=== PATIENT | female | born 1935 | race Caucasian/White ===

== ENCOUNTER 2021-10-17 08:13 | Inpatient (IN) ==
[2021-10-17] MEDS ORDERED: Morphine 4 MG/ML VIAL (1 ml) IV ONE ×2 (08:43→10:04)
[2021-10-17 09:56] LABS: ABS Basophils 0.1 10^3/ul (0-0.2); ABS Monocytes 0.9 10^3/ul (0-0.8); ABS Neutrophils 16.2 10^3/ul (1.5-7.7); Eosinophil % 0.1 %; Hematocrit 42 % (35-47); Hemoglobin 14.3 g/dL (12.0-16.0); Lymphocyte % 5.4 %; Mean Corpuscular HGB Conc 34 g/dL (31-36); Mean Corpuscular Hemoglobin 29 pg (27-31); Mean Corpuscular Volume 85 fL (80-97); Mean Platelet Volume 8.3 fL (7.4-10.4); Nucleated Red Blood Cells % 0.1; Platelet Count 206 10^3/uL (150-450); Red Blood Count 4.95 10^6 /uL (3.70-4.87); Red Cell Distribution Width 13 % (10-15); White Blood Count 18.1 10^3/uL (3.5-10.8)
[2021-10-17 10:15] LABS: ALT 16 U/L (7-52); Albumin 3.5 g/dL (3.2-5.2); Albumin/Globulin Ratio 1.3 (1-3); Alkaline Phosphatase 52 U/L (35-149); Blood Urea Nitrogen 15 mg/dL (6-24); CO2 Carbon Dioxide 21 mmol/L (22-32); Calcium 8.6 mg/dL (8.6-10.3); Chloride 108 mmol/L (101-111); Globulin 2.6 g/dL (2-4); Glucose 114 mg/dL (70-100); Sodium 138 mmol/L (135-145); Total Protein 6.1 g/dL (6.4-8.9); eGFR CKD-EPI 71.9 (>60)
[2021-10-17 10:17] LABS: Troponin I 0.01 ng/mL (<0.03)
[2021-10-17 10:21] LABS: INR 1.1 (0.86-1.15)
[2021-10-17] MEDS ORDERED: Ondansetron 4 mg VIAL 2 MG/ML 2 ml VIAL IV PRN (11:45)
[2021-10-17 12:03] LABS: Anion Gap 9 mmol/L (2-11)
[2021-10-17 12:15] LABS: Creatine Kinase 177 U/L (10-223)
[2021-10-17 13:38] LABS: Rapid COVID-19 Molecular Undetected (Undetected)
[2021-10-17 14:32] LABS: Potassium Redraw 4.3 mmol/L (3.5-5.0)
[2021-10-17] MEDS: Heparin 5000 UNITS/ML 1 mL VIAL SUBCUT SCH ×2 (18:02→21:57)
[2021-10-18 03:11] LABS: Urine Appearance Turbid; Urine Bilirubin Negative (Negative); Urine Blood 1+ (Negative); Urine Color Amber; Urine Glucose Negative (Negative); Urine Ketones Trace (Negative); Urine Nitrite Negative (Negative); Urine Protein 1+(30 mg/dL) (Negative); Urine Specific Gravity 1.017 (1.002-1.030); Urine Urobilinogen Negative (Negative)
[2021-10-18 03:17] LABS: Urine Bacteria 1+ (Absent); Urine Red Blood Cell 2+(6-10/hpf) (Absent); Urine Squamous Epithelial Cell Present (Absent); Urine White Blood Cell 3+(>20/hpf) (Absent)
[2021-10-18] MEDS: Heparin 5000 UNITS/ML 1 mL VIAL SUBCUT SCH (06:08)
[2021-10-18 06:19] LABS: ABS Basophils 0.1 10^3/ul (0-0.2); ABS Lymphocytes 1.1 10^3/ul (1.0-4.8); ABS Monocytes 0.5 10^3/ul (0-0.8); ABS Neutrophils 5.2 10^3/ul (1.5-7.7); Eosinophil % 0.5 %; Hematocrit 36 % (35-47); Hemoglobin 12.4 g/dL (12.0-16.0); Lymphocyte % 15.8 %; Mean Corpuscular HGB Conc 35 g/dL (31-36); Mean Corpuscular Hemoglobin 29 pg (27-31); Mean Corpuscular Volume 84 fL (80-97); Mean Platelet Volume 8.4 fL (7.4-10.4); Platelet Count 174 10^3/uL (150-450); Red Blood Count 4.24 10^6 /uL (3.70-4.87); Red Cell Distribution Width 13 % (10-15); White Blood Count 6.9 10^3/uL (3.5-10.8)
[2021-10-18 06:48] LABS: Calcium 8.5 mg/dL (8.6-10.3); Potassium 4.1 mmol/L (3.5-5.0); eGFR CKD-EPI 59.1 (>60)
[2021-10-18] MEDS: Enoxaparin 40 MG/0.4 ML SYR SUBCUT SCH ×3 (08:18→14:36)
[2021-10-18] MEDS: CMC:Solifenacin 5 mg TAB (NF) PO SCH (08:18)
[2021-10-18 13:43] LABS: Vitamin D Total 25(OH) 21.3 ng/mL (20-50)
[2021-10-19] MEDS: CMC:Solifenacin 5 mg TAB (NF) PO SCH (08:15)
[2021-10-19] MEDS: Enoxaparin 40 MG/0.4 ML SYR SUBCUT SCH (13:33)
[2021-10-20] MEDS: CMC:Solifenacin 5 mg TAB (NF) PO SCH (09:07)
[2021-10-20] MEDS: Enoxaparin 40 MG/0.4 ML SYR SUBCUT SCH (14:43)
[2021-10-20] MEDS ORDERED: Flu vaccine *QUAD* 2021-22* 0.5 ML SYRINGE IM ONE (15:49)
[2021-10-20] MEDS ORDERED: Pneumococcal Vac 23-Polyvalent IM ONE (15:49)
[2021-10-20] MEDS ORDERED: COVID-19 VACCINE, MRNA(MODERNA) BOOSTER/PF 50 MCG/0.25 ML IM ONE (15:49)
[2021-10-21] MEDS: CMC:Solifenacin 5 mg TAB (NF) PO SCH (08:30)
[2021-10-21 11:33] VITALS: BP 128/73
[2021-10-21 12:42] LABS: Rapid COVID-19 Molecular Undetected (Undetected)
== END 2021-10-21 13:45 | DRG 536 ==
LOC: ED 08:13 → EDHOLD 11:55 → SSU 15:13
PROVIDERS: ADMIT Hospitalist; ATTEND Internal Medicine